=== PATIENT | female | born 1935 | race Asian ===

== ENCOUNTER 2023-06-23 11:32 | Inpatient (IN) | payer MEDICARE, OTHER ==
[~2023-06-23] VITALS: Ht 154.9 cm; Wt 58.5 kg
[2023-06-23 12:13] LABS: CALCIUM, SERUM 9.1 mg/dL (8.5-10.1); CARBON DIOXIDE 27 mmol/L (21-32); CHLORIDE 103 mmol/L (98-107); GLUCOSE 186 mg/dL (74-106); POTASSIUM 3.9 mmol/L (3.5-5.1); SODIUM SERUM 139 mmol/L (136-145); UREA NITROGEN, BLOOD 19 mg/dL (7-18)
[2023-06-23 12:19] LABS: BASOPHILS % (AUTO) 1.3 % (0.0-2.0); EOSINOPHILS # (AUTO) 0.4 K/uL (0.0-0.7); EOSINOPHILS % (AUTO) 11.1 % (0.0-6.0); HEMATOCRIT 34 % (33-45); LYMPHOCYTES # (AUTO) 1.3 K/uL (0.8-4.8); MEAN CORPUSCULAR HEMOGLOBIN 31 PG (26.0-33.0); MEAN CORPUSCULAR HGB CONC 32 g/dl (31.0-36.0); MEAN CORPUSCULAR VOLUME 95 fL (82-100); MONOCYTES # (AUTO) 0.3 K/uL (0.1-1.30); MONOCYTES % (AUTO) 7.7 % (2.0-12.0); NEUTROPHILS # (AUTO) 1.6 K/uL (1.8-8.9); NEUTROPHILS % (AUTO) 43.9 % (43.0-81.0); PLATELET COUNT (AUTO) 138 K/uL (150-450); RED BLOOD CELL COUNT(AUTO) 3.58 MIL/uL (4.0-5.2); WHITE BLOOD COUNT (AUTO) 3.7 K/uL (4.3-11.0)
[2023-06-23 12:25] LABS: NT-PRO BNP 318 pg/mL (0-125)
[2023-06-23] MEDS ORDERED: TRIA1TAB3 PO (12:31)
[2023-06-23] MEDS ORDERED: PRAV20TA4 PO (12:31)
[2023-06-23] MEDS ORDERED: ZOLP5TAB8 PO (12:31)
[2023-06-23] MEDS ORDERED: CYCL30DR EACHEYE (12:31)
[2023-06-23] MEDS ORDERED: ALLO100T PO (12:31)
[2023-06-23] MEDS ORDERED: MAG30ORA PO (12:31)
[2023-06-23] MEDS ORDERED: AMLO5TAB4 PO (12:31)
[2023-06-23] MEDS ORDERED: NITR0.4T48 SL (12:31)
[2023-06-23] MEDS ORDERED: LOSA50TA39 PO (12:31)
[2023-06-23] MEDS ORDERED: ACET-2605 PO (12:31)
[2023-06-23] MEDS ORDERED: [UNRECOGNIZED DRUG - OTHER] PO (12:31)
[2023-06-23] MEDS: hydrALAZINE HCL IV 20 MG VIAL IV ONE (12:33)
[2023-06-23] MEDS ORDERED: OMEP20CA15 PO (12:45)
[2023-06-23] MEDS ORDERED: PROP10TA10 PO (12:45)
[2023-06-23] MEDS ORDERED: LOSA25TA27 PO (12:45)
[2023-06-23] MEDS ORDERED: MORPHINE SULFATE INJ 2 MG/ML DISP.SYRIN IV PRN (13:00)
[2023-06-23] MEDS ORDERED: ONDANSETRON HCL/PF 4 MG/2 ML VIAL IVP PRN (13:00)
[2023-06-23 17:00] VITALS: BP 184/91; TEMP 98.6; O2SAT 95
[2023-06-23] MEDS: PROPRANOLOL HCL 10 MG TABLET PO SCH (17:45)
[2023-06-23 21:00] VITALS: BP 163/71; TEMP 98.1; O2SAT 94
[2023-06-23] MEDS: ENOXAPARIN SODIUM 30 MG/0.3 ML DISP.SYRIN SQ SCH (23:06)
[2023-06-23] MEDS: hydrALAZINE HCL IV 20 MG VIAL IV PRN (23:55)
[2023-06-24 01:00] VITALS: BP 171/82; TEMP 98; O2SAT 94
[2023-06-24 05:00] VITALS: BP 157/81; TEMP 97.8; O2SAT 96
[2023-06-24] MEDS: ACETAMINOPHEN 325 MG TABLET PO PRN (05:52)
[2023-06-24 06:47] LABS: BASOPHILS % (AUTO) 0.8 % (0.0-2.0); EOSINOPHILS # (AUTO) 0.5 K/uL (0.0-0.7); EOSINOPHILS % (AUTO) 8.8 % (0.0-6.0); HEMATOCRIT 38 % (33-45); HEMOGLOBIN 12.7 g/dL (11.5-14.8); LYMPHOCYTES # (AUTO) 1.7 K/uL (0.8-4.8); LYMPHOCYTES % (AUTO) 32.6 % (20.0-44.0); MEAN CORPUSCULAR HEMOGLOBIN 31 PG (26.0-33.0); MEAN CORPUSCULAR HGB CONC 34 g/dl (31.0-36.0); MEAN CORPUSCULAR VOLUME 90 fL (82-100); MONOCYTES # (AUTO) 0.5 K/uL (0.1-1.30); MONOCYTES % (AUTO) 9.2 % (2.0-12.0); NEUTROPHILS # (AUTO) 2.6 K/uL (1.8-8.9); NEUTROPHILS % (AUTO) 48.6 % (43.0-81.0); PLATELET COUNT (AUTO) 165 K/uL (150-450); RED BLOOD CELL COUNT(AUTO) 4.16 MIL/uL (4.0-5.2); RED CELL DISTRIBUTION WIDTH 13.3 % (11.5-15.0); WHITE BLOOD COUNT (AUTO) 5.3 K/uL (4.3-11.0)
[2023-06-24 07:08] LABS: ALANINE AMINOTRANSFERASE 28 U/L (12-78); ALBUMIN 3.2 g/dL (3.4-5.0); ALKALINE PHOSPHATASE 94 U/L (46-116); ASPARTATE AMINOTRANSFERASE 22 U/L (15-37); BILIRUBIN,TOTAL 0.5 mg/dL (0.2-1.0); CALCIUM, SERUM 9.4 mg/dL (8.5-10.1); CARBON DIOXIDE 27 mmol/L (21-32); CHLORIDE 104 mmol/L (98-107); GLUCOSE 146 mg/dL (74-106); MAGNESIUM 2.2 mg/dL (1.8-2.4); PHOSPHORUS 3.9 mg/dL (2.5-4.9); POTASSIUM 3.8 mmol/L (3.5-5.1); SODIUM SERUM 139 mmol/L (136-145); TOTAL PROTEIN, SERUM 7.7 g/dL (6.4-8.2); UREA NITROGEN, BLOOD 21 mg/dL (7-18)
[2023-06-24 08:34] VITALS: BP 141/61; TEMP 98.1; O2SAT 96
[2023-06-24 09:00] VITALS: BP 141/61; TEMP 98.1; O2SAT 95
[2023-06-24] MEDS: PANTOPRAZOLE 40 MG TABLET.DR PO SCH (09:02)
[2023-06-24] MEDS: ATORVASTATIN 10 MG TABLET PO SCH (09:02)
[2023-06-24] MEDS: ALLOPURINOL 100 MG TABLET PO SCH (09:02)
[2023-06-24 09:06] VITALS: BP 141/61
[2023-06-24] MEDS: AMLODIPINE BESYLATE 10 MG TABLET PO SCH (09:06)
[2023-06-24] MEDS ORDERED: AMLO-213 PO (12:02)
[2023-06-24] MEDS ORDERED: LOSA50TA39 PO (12:02)
[2023-06-24] MEDS ORDERED: LOSARTAN POTASSIUM 50 MG TABLET PO SCH ×2 (14:30→22:00)
[2023-06-25] MEDS ORDERED: TRIAMTERENE/HYDROCHLOROTHIAZID (37.5/25MG) 1 UDCAP PO SCH (09:00)
== END 2023-06-24 13:15 | disposition home or self-care (01) | DRG 305 ==
LOC: ER 11:34 → TELE1 15:58
PROVIDERS: ADMIT Internal Medicine; ATTEND Internal Medicine
DX: I16.0 Hypertensive urgency (principal); M10.9 Gout, unspecified; E11.9 Type 2 diabetes mellitus without complications; E78.5 Hyperlipidemia, unspecified; R74.8 Abnormal levels of other serum enzymes; R07.89 Other chest pain
CPT/HCPCS: 36415; 71045-TC; 80048-TC; 80053-TC; 83735-TC; 83880; 84100-TC; 84484-TC; 85025-TC; 93307-TC; 97110-TC; 97116-TC; 97530-TC; G0378; J0360; J1650